=== PATIENT | male | born 1995 | race Caucasian/White ===

== ENCOUNTER 2021-05-01 07:30 | Day surgery (SDC) | payer OTHER ==
[2021-05-01] VITALS (9 sets, daily range): BP systolic 105–147; BP diastolic 66–83
[~2021-05-01] VITALS: Ht 188 cm; Wt 89.0 kg
--- NOTE | 2021-05-01 08:00 | NUR ---
PATIENT TO ROOM 281 AMBULATOIRY. ADMISSION ASSESSMENT COMPLETED AT THIS TIME. CONSENT OBTAINED. ORIENTED PATIENT TO ROOM AND UNIT. CALL LIGHT INR EACH. WILL CONTINUE TO MONITOR.
--- NOTE | 2021-05-01 10:45 | NUR ---
DR OBANDO AT BEDSIDE TO PLACE TLC.
[2021-05-01 11:25] LABS: HEMATOCRIT 38.3 % (39.0-50.0); HEMOGLOBIN 13.1 g/dl (14.0-18.0); MEAN CELL VOLUME 82.9 fL CALC (80.0-100.0); MEAN CORPUSCULAR HGB 28.4 pG CALC (26.0-32.0); MEAN CORPUSCULAR HGB CONC 34.2 g/dL CAL (32.0-36.0); NEUT# 3.57 thou/uL (1.82-7.42); RED BLOOD COUNT 4.62 mill/uL (4.70-6.10); RED CELL DISTRI WIDTH 12.2 % (11.5-15.5)
[2021-05-01 11:41] LABS: ALBUMIN 3.8 g/dL (3.2-5.0); ALKALINE PHOSPHATASE 48 u/l (38-126); ANION GAP 8 (6-22 (CALC)); BILIRUBIN, TOTAL 0.7 mg/dL (0.0-1.4); BUN 15 mg/dL (9-20); BUN/CREATININE RATIO 19 (12-20 (CALC)); CARBON DIOXIDE 28 mmol/l (22-30); CHLORIDE 104 mmol/l (95-108); CREATININE 0.8 mg/dL (0.7-1.3); GFR > 60 ML/MIN (>=60 (CALC)); GFR FOR AFR.AMER. > 60 ML/MIN (>=60 (CALC)); SGOT/AST 23 u/l (17-59); SODIUM 137 mmol/l (137-146); TOTAL PROTEIN 6.8 g/dL (6.3-8.2)
--- NOTE | 2021-05-01 12:45 | NUR ---
PATIENT TO [facility] PROCEDURE VIA BED,
[2021-05-01] MEDS ORDERED: NALTREXONE50 MG PO (13:50)
[2021-05-01] MEDS ORDERED: CLONIDINE0.1 MG PO (13:51)
[2021-05-01] MEDS ORDERED: KLONOPIN0.5 MG PO (13:53)
--- NOTE | 2021-05-01 16:30 | NUR ---
REPORT RECIEVED FROM LORNE ZUÑIGA AT BEDSIDE. PT SLEEPING UPON ARRIVAL. BED ALARM ACITIVATED. FALL PRECAUTIONS IN PLACE. CALL LIGHT WITHIN REACH
--- NOTE | 2021-05-01 17:00 | NUR ---
ATTEMPT TO TAKE FIRST SET OF VITALS. PT UNCOOPERATIVE/ RESTLESS WILL ATTEMPT LATER. CALL LIGHT WITHIN REACH. BED ALARM ACTIVATED.
--- NOTE | 2021-05-01 17:45 | NUR ---
PT ALLOWED VITALS AT THIS TIME. BUT STILL RESTLESS AND DISORIENTATED. CALL LIGHT WITHIN REACH. FALL PRECAUTIONS IN PLACE. BED ALARM ACTIVATED.
--- NOTE | 2021-05-01 18:37 | NUR ---
PT VERY AGITATED POST OP WAS GOING TO ADMINISTER ATIVAN PER EMAR. BUT PT RIPPED OUT IV SITE, DR. KAUR NOTIFED. DR. KAUR WILL RETURN TO ESTABLISH NEW PICC LINE.
--- NOTE | 2021-05-01 19:00 | NUR ---
AT BEDSIDE, STATES NO NEED FOR IV OR CENTRAL LINE PLACEMENT. LONG PT MAY TOLERATE PO.
--- NOTE | 2021-05-01 20:00 | NUR ---
PT RESTING IN BED CALLING OUT, PT STATES HE HAS TO VOID, ASSISTED PT TO BATHROOM, AMBULATED WITH STEADY GAIT, NO SIGNS OF DISTRESS NOTED, RESP EVEN AND UNLABORED. PT ALERT AND ORIENTED X3, NO EDEMA, ATTEMPTED TO DISCUSS POC, PT TO AGITAED AT THIS TIME. NO IV SITE, SKIN INTACT. ASSESSMENT COMPLETED, BED ALARM FOR SAFETY, CALL LIGHT IN REACH,CONTINUE TO MONITOR.
--- NOTE | 2021-05-01 21:57 | NUR ---
PT RESTING IN BED, C/O AGITATION REQUESTS SOMETHING TO HELP HIM RELAX. PT MEDICATED PER MAR, PT UPSET STATES HE THOUGHT HE WOULD SLEEP THROUGH ENTIRE PROCESS, ALLOWED PT TO EXPRESS HIS FRUSTRATIONS, POLICE JUDGE PROVIDED POSITIVE FEEDBACK, CALL LIGHT IN REACH, BED ALARM FOR SAFETY, CONTINUE TO MONITOR.
--- NOTE | 2021-05-02 01:10 | NUR ---
PT RESTING IN BED WITH EYES CLOSED, NO SIGNS OF DISTRESS NOTED, RESP EVEN AND UNLABORED. CALL LIGHT IN REACH,CONTINUE TO MONITOR.
--- NOTE | 2021-05-02 02:41 | NUR ---
PT AGITATED, STATES HE IS UNABLE TO SLEEP, PT STATES,"I'M COLD AND THE BLANKETS MAKE ME COLDER" FAIZA DOZIER APPLIED. CALL LIGHT IN REACH,CONTINUE TO MONITOR.
[2021-05-02 03:48] VITALS: BP 105/61
--- NOTE | 2021-05-02 03:49 | NUR ---
VITALS OBTAINED, PT MEDICATED PER MAR, NO SIGNS OF DISTRESS NOTED, RESP EVEN AND UNLABORED. BED ALARM FOR SAFETY, CALL LIGHT IN REACH,CONTINUE TO MONITOR.
--- NOTE | 2021-05-02 05:14 | NUR ---
PT UNCOOPERATIVE FOR AM LAB DRAW, BED ALARM IN PLACE, CALL LIGHT IN REACH,CONTINUE TO MONITOR.
[2021-05-02 08:00] VITALS: BP 108/56
--- NOTE | 2021-05-02 08:00 | NUR ---
PT IS AGIATTED UPON ENTERING ROOM STATING " I FEEL WORSE THAN I CAME" PT STILL DOES NOT HAVE IV SITE. VITALS AND PARTIAL ASSESSMENT ALLOWED AT THIS TIME. LUNG SOUNDS ARE CLEAR UPPER/LOWER LOBES ANETERIORLY. HEART SOUNDS REGUALR. BOWEL SOUNDS ACTIVE X4. RADIAL PULSES STRONG. REFUSED ANY FURTHER ASSESSMENT. PT STATES WAS THIRSTY SO GAVE SOME OJ TO PT. BED ALARM IS ACIVATED. FALL/ SAFTEY PRECAUTIONS IN PLACE. CALL LIGHT WITHIN REACH
--- NOTE | 2021-05-02 12:26 | NUR ---
PT SLEEPING AT THIS TIME. NO DISTRESS NOTED. BREATHING IS EVEN AND UNLABORED. BED ALARM ACTIVATED. FALL/ SAFTEY PRECAUTIONS ARE IN PLACE. CALL LIGHT WITHIN REACH.
--- NOTE | 2021-05-02 13:30 | NUR ---
PT DENIES GETTING WANTING TO GET OUT OF BED TO SHOWER. ENCOUARGED PT TO GET UP AND MOVE BUT PT DENIES
--- NOTE | 2021-05-02 15:00 | NUR ---
ENCOUARGED PT TO GET UP FROM BED TO SHOWER. DENIES WANTING TO GET UP AND MOVE. PT STATES " I PAID GOOD MONEY TO BE HERE." WILL TRY AGAIN LATER.
--- NOTE | 2021-05-02 15:50 | NUR ---
IN ROOM WITH PT AT THIS TIME. PT REALLY AGITATED BEING VERY UNCOMPLIANT.
--- NOTE | 2021-05-02 16:04 | NUR ---
MR. ANDERSON ([facility] STAFF) AT BEDSIDE WITH PT AT THIS TIME
[2021-05-02 16:18] VITALS: BP 115/68
--- NOTE | 2021-05-02 16:21 | NUR ---
MR. DAVALOS HAS TAKEN PT OUT OF UNIT FOR " FRESH AIR" LORNE MENDOZA BOOK SEWER NOTIFIED AT THIS TIME. ASKED ANOOP IF PT IS GETTING DISCHARGED AT THIS TIME. ANOOP STATES " NO TAKING THEM OUT FOR FRESH AIR" LORNE FERNANDEZ EXPLAINED NOT ALLOWED TO TAKE PT OUT OF UNIT PART OF [facility]IC[facility]. ANOOP REPLIED " IM TAKING THE PT OUT." CONTINUED TO TAKE PT OUT OF THE UNIT.
--- NOTE | 2021-05-02 17:39 | NUR ---
Discharge instructions given. Patient verbalizes understanding of same. Discharged in stable condition via Wheelchair to with [facility] staff MR. WOLFF. All belongings sent with pt. PT HAD NO IV.
== END 2021-05-02 17:24 | disposition home or self-care (01) | DRG 897 ==
LOC: ANR 07:30 → MS2 07:36 → ANR 13:54
PROVIDERS: ATTEND Anesthesiology
DX: F11.20 Opioid dependence, uncomplicated (principal)
CPT/HCPCS: J2060; J2354; J3475